=== PATIENT | female | born 1965 | race Caucasian/White ===

== ENCOUNTER 2020-12-18 08:42 | Day surgery (SDC) | payer MEDICAID ==
[2020-12-18] MEDS ORDERED: Propofol 200 MG/20 ML SDV ONE ×3 (08:43→11:08)
[2020-12-18] MEDS ORDERED: Midazolam 1 MG/ML 2 ML SDV ONE (08:43)
[2020-12-18] MEDS ORDERED: fentaNYL 100 MCG/2 ML SDV ONE (08:43)
[2020-12-18] MEDS ORDERED: Acetaminophen 500 MG Tab PO ONE (09:00)
[2020-12-18] MEDS ORDERED: Celecoxib 200 MG Cap PO ONE (09:00)
[2020-12-18] MEDS ORDERED: Scopolamine 1.5 MG Transdermal Patch TRDERM SCH (09:00)
[2020-12-18] MEDS ORDERED: Dextrose 5%-Lactated Ringers 1,000 ML IV SCH (09:30)
[2020-12-18] MEDS ORDERED: cefOXitin 2 GM in Sodium Chloride 0.9% 50 ML IV ONE (10:15)
[2020-12-18] MEDS ORDERED: Lactated Ringers 1,000 ML ONE (11:19)
--- NOTE | 2020-12-24 14:08 | OR ---
DATE OF PROCEDURE: 12/18/2020 SURGEON: Kenny Pastor MD PREOPERATIVE DIAGNOSIS: History of colorectal polyps. POSTOPERATIVE DIAGNOSIS: Multiple recurrent colorectal polyps (16 in total). OPERATIVE PROCEDURE: 1. Flexible colonoscopy with: a. Removal of colon polyps by snare technique x13. b. Removal of colon polyps by cold biopsy forceps x3. ANESTHESIA: IV sedation. INDICATIONS FOR PROCEDURE: This is a 55-year-old with history of some colon polyps in 2001. She presents now for a followup colonoscopy. The plan is to proceed with colonoscopy with biopsies and/or polypectomy. Potential risks of the procedure including bleeding and perforation were discussed, and the patient wishes to proceed. DETAILS OF PROCEDURE: The patient was taken to the operating room and placed in a left lateral decubitus position. IV sedation was administered, after which the digital rectal exam was performed and was unremarkable. Colonoscope was then passed to the level of the rectum with retroflexion revealing uncomplicated hemorrhoidal columns. Scope was then eventually passed to the level of the cecum. The prep was generally quite good. During the course of the exam, the patient had what appeared to be a total of 16 polyps. These measured from being in 1 to 2 mm up to around 8 mm in size. The patient had 1 polyp in the distal transverse colon, 1 in the splenic flexure, 1 in the mid sigmoid colon. As one became more distal within the colon and rectum, polyps became more numerous. In the mid rectum, total of 4 polyps were removed. In the distal rectum, a total of 7 polyps were removed, and finally 1 additional polyp was noted in the quite distal rectum. These were removed by snare technique in 13 cases and 3 other cases where they were small enough they were removed by simple biopsy forceps. These were collected in groups, placed under general location, and good hemostasis was noted at the completion of the procedure and the patient tolerated the procedure well. Assuming that the present polyps are all benign, the next colonoscopy should be in 1 year given the large number of polyps identified. One additional aspect in this patient is that she was noted to have some asymmetry of the left clavicular head. CT scan was obtained prior to the colonoscopy which showed no bony destruction or evidence of neoplastic change. The radiologist felt this was probably some synovitis involving the clavicular head and there was in fact some lesser extent on the right side as well. She has no pain, and at this point no additional treatment would be required. Kenny Pastor MD /[id number]
== END 2020-12-18 13:15 | disposition home or self-care (01) ==
LOC: JP.SDS 08:42
PROVIDERS: ATTEND Surgery
DX: Z12.11 Encounter for screening for malignant neoplasm of colon (principal); D12.4 Benign neoplasm of descending colon; D12.5 Benign neoplasm of sigmoid colon; D12.3 Benign neoplasm of transverse colon; K62.1 Rectal polyp; K64.9 Unspecified hemorrhoids; Z88.2 Allergy status to sulfonamides; Z88.8 Allergy status to other drugs, medicaments and biological substances; Z86.010 Personal history of colon polyps
CPT/HCPCS: 45380; 45385; 88305; J2250; J2704; J3010; J7120; J7121

== ENCOUNTER 2022-02-07 06:20 | Day surgery (SDC) | payer MEDICAID ==
[2022-02-07] MEDS ORDERED: Dextrose 5%-Lactated Ringers 1,000 ML IV SCH (07:00)
[2022-02-07] MEDS ORDERED: Midazolam 1 MG/ML 2 ML SDV ONE (07:00)
[2022-02-07] MEDS ORDERED: fentaNYL 100 MCG/2 ML SDV ONE (07:00)
[2022-02-07] MEDS ORDERED: Propofol 200 MG/20 ML SDV ONE (07:00)
== END 2022-02-07 10:18 | disposition home or self-care (01) ==
LOC: JP.SDS 06:20
PROVIDERS: ATTEND Surgery
DX: Z12.11 Encounter for screening for malignant neoplasm of colon (principal); D12.8 Benign neoplasm of rectum; I10 Essential (primary) hypertension; Z88.2 Allergy status to sulfonamides; F17.200 Nicotine dependence, unspecified, uncomplicated; Z86.010 Personal history of colon polyps; Z98.890 Other specified postprocedural states
CPT/HCPCS: J2250; J2704; J3010; J7121

== ENCOUNTER 2024-06-16 11:45 | Emergency (ER) | payer OTHER ==
[2024-06-16] MEDS: Acetaminophen/HYDROcodone 325-5 MG Tab PO ONE (13:13)
[2024-06-16] MEDS ORDERED: Sodium Chloride 0.9% 10 ML Syringe FLUSH PRN (13:47)
[2024-06-16] MEDS: Sodium Chloride 0.9% 1,000 ML IV SCH (14:00)
[2024-06-16] MEDS ORDERED: Propofol 200 MG/20 ML SDV ONE (14:35)
[2024-06-16 15:00] LABS: BASOPHILS ABSOLUTE AUTO 0.03 K/uL (0.00-0.10); BASOPHILS PERCENT AUTO 0.3 % (0.1-1.3); EOSINOPHILS PERCENT AUTO 0.2 % (0.0-5.4); HEMATOCRIT 36.6 % (34.3-46.0); HEMOGLOBIN 13.3 g/dL (11.2-15.5); IMMATURE GRAN ABSOLUTE AUTO 0.03 K/uL (0.00-0.23); IMMATURE GRAN PERCENT AUTO 0.3 % (0.0-0.7); LYMPHOCYTES ABSOLUTE AUTO 1.91 K/uL (0.8-3.3); LYMPHOCYTES PERCENT AUTO 16.3 % (11.4-47.7); MEAN CORPUSCULAR HEMOGLOBIN 33.6 pg (31.6-35.5); MEAN CORPUSCULAR HGB CONC 36.3 g/dL (31.6-35.5); MEAN CORPUSCULAR VOLUME 92.4 fL (81.4-99.0); MONOCYTES ABSOLUTE AUTO 0.74 K/uL (0.20-0.90); MONOCYTES PERCENT AUTO 6.3 % (3.3-12.6); NEUTROPHILS ABSOLUTE AUTO 8.98 K/uL (1.0-7.6); NEUTROPHILS PERCENT AUTO 76.6 % (40.0-78.1); PLATELET COUNT,PLT 253 K/uL (130-375); RED BLOOD CELL COUNT 3.96 M/uL (3.77-5.24); WHITE BLOOD CELL COUNT,WBC 11.7 K/uL (3.2-11.0)
[2024-06-16 15:10] LABS: EOSINOPHILS ABSOLUTE AUTO 0.02 K/uL (0.00-0.40)
[2024-06-16 15:20] LABS: A/G RATIO 1.1 (1.2-2.2); ALANINE AMINOTRANSFERASE,ALT 31 U/L (12-78); ALBUMIN 3.9 g/dL (3.4-5.0); ALKALINE PHOSPHATASE 73 U/L (46-116); ASPARTATE AMNIOTRANSFERASE,AST 27 U/L (15-37); BILIRUBIN TOTAL 0.7 mg/dL (0.2-1.0); BLOOD UREA NITROGEN,BUN 8 mg/dL (7-18); CALCIUM 9.1 mg/dL (8.5-10.1); CARBON DIOXIDE,CO2 24 mmol/L (21-32); CHLORIDE,CL 100 mmol/L (100-108); CREATININE 0.6 mg/dL (0.6-1.0); EST CRCL DRUG DOSING (CG) 84.47 mL/min; ESTIMATED GFR 103 mL/min (>60); GLUCOSE RANDOM 99 mg/dL (74-106); POTASSIUM,K 3.8 mmol/L (3.6-5.2); PROTEIN TOTAL,TP 7.3 g/dL (6.4-8.2); SODIUM,NA 135 mmol/L (140-148)
[2024-06-16 15:21] LABS: ANION GAP 14.8 mmol/L (5.0-14.0)
== END 2024-06-16 15:27 | disposition home or self-care (01) ==
LOC: JP.ED 11:45
DX: S52.501A Unspecified fracture of the lower end of right radius, initial encounter for closed fracture (principal); I10 Essential (primary) hypertension; F17.210 Nicotine dependence, cigarettes, uncomplicated; Z79.899 Other long term (current) drug therapy; Z88.8 Allergy status to other drugs, medicaments and biological substances; W01.0XXA Fall on same level from slipping, tripping and stumbling without subsequent striking against object, initial encounter
CPT/HCPCS: 25605; 36415; 73110; 76000; 80053; 85025; 99283; A9270; J2704; J7030

== ENCOUNTER 2024-06-19 07:51 | Day surgery (SDC) | payer OTHER ==
[2024-06-19] MEDS ORDERED: Rocuronium 50 MG/5 ML Vial ONE (08:32)
[2024-06-19] MEDS ORDERED: Propofol 200 MG/20 ML SDV ONE (08:32)
[2024-06-19] MEDS ORDERED: Neostigmine Methylsulfate 10 MG/10 ML MDV ONE (08:32)
[2024-06-19] MEDS ORDERED: Dexamethasone 4 MG/ML SDV ONE (08:32)
[2024-06-19] MEDS ORDERED: Ondansetron 4 MG/2 ML SDV ONE (08:32)
[2024-06-19] MEDS ORDERED: Succinylcholine 200 MG/10 ML MDV ONE (08:32)
[2024-06-19] MEDS ORDERED: fentaNYL 250 MCG/5 ML SDV ONE (08:32)
[2024-06-19] MEDS ORDERED: Glycopyrrolate 0.2 MG/ML 5 ML MDV ONE (08:32)
[2024-06-19] MEDS: Lactated Ringers 1,000 ML IV SCH (08:49)
[2024-06-19] MEDS: Nozin Nasal Sanitizer NASBOTH ONE (09:04)
[2024-06-19] MEDS: Bupivacaine 0.5% 30 ML SDV ONE (11:48)
[2024-06-19] MEDS: ceFAZolin 2 GM in Premix Bag 1 BAG IV ONE (11:52)
[2024-06-19] MEDS: Morphine 2 MG/ML SYRINGE IVPUSH ONE (12:39)
[2024-06-19] MEDS: Acetaminophen/HYDROcodone 325-5 MG Tab PO ONE (13:28)
== END 2024-06-19 14:03 | disposition home or self-care (01) ==
LOC: JP.SDS 07:51
PROVIDERS: ATTEND Specialist
DX: S52.501A Unspecified fracture of the lower end of right radius, initial encounter for closed fracture (principal); I10 Essential (primary) hypertension; F32.A Depression, unspecified; F41.9 Anxiety disorder, unspecified; F17.210 Nicotine dependence, cigarettes, uncomplicated; K21.9 Gastro-esophageal reflux disease without esophagitis; X58.XXXA Exposure to other specified factors, initial encounter
CPT/HCPCS: 01830; 25608; 76000; 93005; A9270; C1713; J0330; J0665; J0690; J1100; J1596; J2270; J2405; J2704; J2710; J3010; J7120; J3490

== ENCOUNTER 2024-07-31 06:56 | Day surgery (SDC) | payer OTHER ==
[2024-07-31] MEDS ORDERED: fentaNYL 50 MCG/ML SDV ONE (07:11)
[2024-07-31] MEDS ORDERED: Propofol 200 MG/20 ML SDV ONE ×2 (07:11→08:35)
[2024-07-31] MEDS ORDERED: Midazolam 1 MG/ML 2 ML SDV ONE (07:11)
[2024-07-31] MEDS: Lactated Ringers 1,000 ML IV SCH (08:04)
== END 2024-07-31 09:58 | disposition home or self-care (01) ==
LOC: JP.SDS 06:56
PROVIDERS: ATTEND Surgery
DX: Z12.11 Encounter for screening for malignant neoplasm of colon (principal); D12.2 Benign neoplasm of ascending colon; K63.5 Polyp of colon; I10 Essential (primary) hypertension; F17.200 Nicotine dependence, unspecified, uncomplicated
CPT/HCPCS: 45385; J2250; J2704; J3010; J7120; 00811-QZ; 88305